=== PATIENT | male | born 1960 ===

== ENCOUNTER 2020-08-09 12:50 | Emergency (ER) | payer SELFPAY ==
[~2020-08-09] VITALS: Ht 175.3 cm; Wt 75.0 kg
[2020-08-09 14:11] LABS: BASOPHILS % (AUTO) 0 % (0-1); EOSINOPHILS % (AUTO) 0 % (1-7); LYMPHOCYTES % (AUTO) 16 % (22-44); MEAN CORPUSCULAR HEMOGLOBIN 33.4 pg (27.5-34.5); MEAN CORPUSCULAR HGB CONC 33.8 g/dL (33.2-36.2); MONOCYTES % (AUTO) 19 % (2-9); NEUTROPHILS % (AUTO) 65 % (42-75); PLATELET COUNT 120 x10^3/uL (130-400); RED BLOOD COUNT 3.59 x10^6/uL (4.38-5.82); RED CELL DISTRIBUTION WIDTH 14.5 % (9.4-14.8)
[2020-08-09 14:12] LABS: MD NO
--- NOTE | 2020-08-09 14:21 | NUR ---
PT IS A LITTLE AGGREVATED. EDUCATED PT ON PROCESS. PT VERBALIZES UNDERSTANDING.
[2020-08-09 14:58] LABS: HCT (SEDRATE) 35.4 % (39.2-51.8)
[2020-08-09 15:32] VITALS: BP 160/103
--- NOTE | 2020-08-09 15:32 | NUR ---
PT STOOD AT BEDSIDE AND VOIDED INTO URINAL. PT REFUSING SOCK D/T NEUROPATHY. APPROX 400 MLS DARK YELLOW URINE VOIDED.
== END 2020-08-09 17:04 | disposition home or self-care (01) ==
LOC: ED 16:30
DX: M13.162 Monoarthritis, not elsewhere classified, left knee (principal); M79.89 Other specified soft tissue disorders; I10 Essential (primary) hypertension
CPT/HCPCS: 36415; 85025; 85651; 86140; 99283